=== PATIENT | female | born 1955 | race Hispanic/Latino ===

== ENCOUNTER 2017-07-02 12:01 | Observation (INO) | payer BC ==
--- NOTE | 2017-07-02 13:07 | ED PDOC ---
Arrival/HPI <Kristian Campbell - Last Filed: 07/02/17 17:16> - General Historian: Patient, Spouse - History of Present Illness Time/Duration: 1 week Symptom Onset: Gradual Symptom Course: Worsening Quality: Aching, Stabbing, Burning Severity Level: 8 Activities at Onset: Rest, Eating Context: Home <KHANG ARNOLD - Last Filed: 07/02/17 17:50> - General Chief Complaint: Abdominal Pain Time Seen by Provider: 07/02/17 12:18 - History of Present Illness Narrative History of Present Illness (Text): 07/02/17 12:57 Mrs. Christopher is a 62 year old female with a past medical history of gastritis in 2015 who presented to the [facility] [place] ED with a chief complaint of LUQ abdominal pain for one weeks duration. Patient reports that this is a constant intermittently sharp pain with periods of dullness/aching. She reports that this pain radiates to her left flank and left scapular region. She states the pain has gotten worse and for the past three days she has also felt lightheaded, dizzy and weak. She went to an urgent care last night and reports that they offered no diagnosis but prescribed her prescription strength famotidine, which she reports taking at home prior to the urgent with minimal to no relief of her symptoms. She reports no trauma or particular meal/food item and reports being at home when the pain started. She endorses several episodes of non-bloody and non-foul smelling diarrhea at the onset of this pain that was not awakening her at night that has progressively improved to one or two soft/loose stools daily. She endorses lightheadedness, general weakness, body "shakes", abdominal pain , bloating, diarrhea, left flank pain, and decreased PO intake. Patient denies fevers, chills, weight loss, headache, changes in her vision, dysphagia, chest pain, palpitations, MICHEL, edema, shortness of breath, cough, hemoptysis, wheezing , N/V, hematemesis, hematochezia, melena, constipation, burning or pain with urination, vaginal bleeding, rashes or any numbness/tingling/weakness of any extremity. PMH: Gastritis and Tobacco Abuse PSH: 30 years ago Family History: Father with NV at age 68 and HTN; Brother with unknown brain cancer Social: Current smoker with 40 pack year smoking history; Drinks 2 glasses of red wine with dinner daily: No reported illicit drug use Allergies: Levofloxacin Home Medications: None 07/02/17 14:01 (KHANG ARNOLD) Past Medical History - Provider Review Nursing Documentation Reviewed: Yes - Travel History Have you recently traveled outside [place] w/in the past 3 mons?: No - Past History Past History: Non-Contributing - Tetanus Immunization Tetanus Immunization: Unknown - Reproductive Menopause: Yes - Past Medical History Past Medical History: No Previous - Cardiac Hx Cardiac Disorders: No - Pulmonary Hx Respiratory Disorders: No - Neurological Hx Neurological Disorder: No - HEENT Hx HEENT Disorder: No - Renal Hx Renal Disorder: No - Endocrine/Metabolic Hx Endocrine Disorders: No - Hematological/Oncological Hx Blood Disorders: No - Integumentary Hx Dermatological Disorder: No - Musculoskeletal/Rheumatological Hx Musculoskeletal Disorders: No - Gastrointestinal Hx Gastritis: Yes - Genitourinary/Gynecological Hx Genitourinary Disorders: No - Psychiatric Hx Psychophysiologic Disorder: No Hx Substance Use: No - Surgical History Hx Section: Yes - Anesthesia Hx Anesthesia: No - Suicidal Assessment Feels Threatened In Home Enviroment: No <KHANG ARNOLD - Last Filed: 07/02/17 17:50> Family/Social History - Physician Review Nursing Documentation Reviewed: Yes Family/Social History: Hypertension (Father), CAD/NV (Father-NV at 68), Neoplasm /Cancer (Brother with unknown brain cancer). denies: CVA/TIA, Diabetes, Blood Clots Smoking Status: Heavy Smoker > 10 Cigarettes Daily Hx Alcohol Use: Yes (1 glass of wine nightly) Hx Substance Use: No Hx Substance Use Treatment: No <KHANG ARNOLD - Last Filed: 07/02/17 17:50> Allergies/Home Meds <Kristian Campbell - Last Filed: 07/02/17 17:16> <KHANG ARNOLD - Last Filed: 07/02/17 17:50> Allergies/Adverse Reactions: Allergies levofloxacin [From Levaquin] Allergy (Verified 07/02/17 16:55) SWELLING Home Medications: Home Meds Medication Instructions Recorded Confirmed Famotidine [Pepcid] 40 mg PO DAILY 07/02/17 07/02/17 Review of Systems - Physician Review All systems were reviewed & negative as marked: Yes - Review of Systems Constitutional: Normal. absent: Fatigue, Weight Change, Fevers, Night Sweats Eyes: Normal. absent: Vision Changes ENT: Normal. absent: Sore Throat Respiratory: Normal. absent: SOB, Cough, Wheezing Cardiovascular: Normal. absent: Chest Pain, Palpitations, Edema, MICHEL, Syncope Gastrointestinal: Abdominal Pain, Diarrhea, Appetite Changes. absent: Normal, Constipation, Nausea, Vomiting, Hematochezia, Hematemesis Genitourinary Female: Normal. absent: Dysuria, Hematuria, Vaginal Bleeding Musculoskeletal: Back Pain (Left scapular and left flank pain). absent: Normal , Arthralgias, Neck Pain, Myalgias Skin: Normal. absent: Rash Neurological: Dizziness. absent: Normal, Headache, Focal Weakness, Gait Changes Endocrine: Normal. absent: Diaphoresis, Polyuria, Polydipsia <KHANG ARNOLD - Last Filed: 07/02/17 17:50> Physical Exam Vital Signs Reviewed: Yes Temperature: Afebrile Blood Pressure: Hypertensive (191/100 on admission and 172/102 on manual retake 20 minutes later) Pulse: Regular Respiratory Rate: Normal Appearance: Positive for: Non-Toxic, Uncomfortable Pain Distress: Moderate Mental Status: Positive for: Alert and Oriented X 3 - Systems Exam Head: Present: Atraumatic, Normocephalic Pupils: Present: PERRL Extroacular Muscles: Present: EOMI Conjunctiva: Present: Normal Mouth: Present: Moist Mucous Membranes, Normal Tounge, Normal Teeth Pharnyx: Present: Normal. No: ERYTHEMA, EXUDATE, TONSILS ENLARGED Nose (External): Present: Atraumatic Neck: Present: Normal Range of Motion, Trachea Midline. No: MIDLINE TENDERNESS , JVD, Lymphadenopathy Respiratory/Chest: Present: Clear to Auscultation, Good Air Exchange. No: Respiratory Distress, Accessory Muscle Use, Wheezes, Decreased Breath Sounds, Rales, Rhonchi, Tachypneic, Tender to Palpation Cardiovascular: Present: Regular Rate and Rhythm, Normal S1, S2, Peripheal Pulses Present. No: Murmurs, Irregular Rhythm, Tachycardic, Bradycardic Abdomen: Present: Tenderness (Tenderness to light and deep palpation to LUQ), Other (Negative murphys sign). No: Distention, Normal Bowel Sounds ( Hyperactive bowel sounds), McBurney's Point Tender Back: Present: Normal Inspection. No: CVA Tenderness, Midline Tenderness, Paraspinal Tenderness Upper Extremity: Present: Normal Inspection, NORMAL PULSES, Capillary Refill < 2s. No: Cyanosis, Edema Lower Extremity: Present: Normal Inspection, NORMAL PULSES, Capillary Refill < 2 s. No: Edema, CALF TENDERNESS Neurological: Present: GCS=15, Speech Normal Skin: Present: Warm, Dry, Normal Color. No: Rashes Lymphatic: No: Cervical Adenopathy Psychiatric: Present: Alert, Oriented x 3, Normal Insight, Normal Concentration <KHANG ARNOLD - Last Filed: 07/02/17 17:50> Vital Signs Temp Pulse Resp BP Pulse Ox 07/02/17 17:21 97.7 F 77 18 140/79 07/02/17 14:57 77 18 140/79 95 07/02/17 13:32 73 188/96 H 07/02/17 13:21 78 18 172/105 H 96 07/02/17 12:06 97.7 F 85 21 192/101 H 96 Medical Decision Making <Kristian Campbell - Last Filed: 07/02/17 17:16> - Lab Interpretations I have reviewed the lab results: Yes - EKG Interpretation Interpreted by ED Physician: Yes Type: 12 lead EKG <KHANG ARNOLD - Last Filed: 07/02/17 17:50> ED Course and Treatment: 07/02/17 16:00 Precious Christopher is a 62 year old female who presents to the emergency department with 1 week duration LUQ abdominal pain. The patient was seen and examined with resident. Came up with treatment and disposition plan with resident. (Kristian Campbell) 07/02/17 14:07 Impression: 62 year old female with a past medical history of gastritis in 2014 who presented to the [facility] [place] [facility] ED with a chief complaint of LUQ abdominal pain for one weeks duration. Patient with hypertension to 190's/100 on admission with continued hypertension at 172/102 on manual retake. Plan: -CBC, CMP, Lipase, Amylase, Cardiac Iso's, UA -EKG -CT Abdomen/Pelvis with IV Contrast and Chest X-Ray (portable) -ED NPO (except medications) and Normal Saline at 100mls/hr -Famotidine 40mg PO, Bentyl 20mg PO and Morphine 4mg IVP once for pain control -Clonidine 1mg PO for hypertension Prior Visits: All reports and results from previous admissions reviewed 03/15/15: Patient was seen for left sided abdominal pain and diagnosed with gastritis and sent home with a prescription for Pepcid (KHANG ARNOLD) - EKG Interpretation EKG Interpretation (Text): 07/02/17 14:06 70 BPM, NSR, No ST-T wave changes, No T wave abnormalities (KHANG ARNOLD) - Medication Orders Current Medication Orders: Sodium Chloride (Sodium Chloride 0.9%) 1,000 mls @ 100 mls/hr IV .Q10H FABY Last Admin: 07/02/17 13:31 Dose: 100 mls/hr eMAR Start Stop Document 07/02/17 13:31 OCS (Rec: 07/02/17 13:32 OCS [id number]) Intravenous Solution Start Date 07/02/17 Start Time 13:32 Discontinued Medications Clonidine HCl (Catapres) 0.1 mg PO STAT STA Stop: 07/02/17 13:18 Last Admin: 07/02/17 13:32 Dose: 0.1 mg MAR Pulse and Blood Pressure Document 07/02/17 13:32 OCS (Rec: 07/02/17 13:39 OCS [id number]) Pulse Pulse Rate (60-90) 73 Blood Pressure Blood Pressure (100/60-150/90) 188/96 Dicyclomine HCl (Bentyl) 20 mg PO ONCE ONE Stop: 07/02/17 13:16 Last Admin: 07/02/17 13:31 Dose: 20 mg Famotidine (Pepcid) 40 mg PO STAT STA Stop: 07/02/17 13:16 Last Admin: 07/02/17 13:31 Dose: 40 mg Morphine Sulfate (Morphine) 4 mg IVP STAT STA Stop: 07/02/17 14:03 Last Admin: 07/02/17 15:15 Dose: 4 mg MAR Pain Assessment Document 07/02/17 15:15 OCS (Rec: 07/02/17 15:15 OCS [id number]) Pain Reassessment Is this a pain reassessment? Yes Sleep Is patient sleeping during reassessment? No Presence of Pain Presence of Pain Yes Location Left, Right or Bilateral Left Upper or Lower Lower Pain Location Body Site Abdomen Description Description Constant IVP Administration Document 07/02/17 15:15 OCS (Rec: 07/02/17 15:15 OCS [id number]) Charges for Administration # of IVP Administrations 1 Re-Assess: JOSE Pain Assessment Document 07/02/17 16:15 OCS (Rec: 07/02/17 16:38 OCS [id number]) Pain Reassessment Is this a pain reassessment? Yes Sleep Is patient sleeping during reassessment? No Presence of Pain Presence of Pain Yes Pain Scale Used Pain Scale Used Numeric Location Left, Right or Bilateral Left Upper or Lower Lower Pain Location Body Site Abdomen Description Description Constant Intensity of Pain at present 4 Nitroglycerin (Nitrostat Sl Tab) 0.4 mg SL STAT STA Stop: 07/02/17 16:23 Last Admin: 07/02/17 17:17 Dose: 0.4 mg Pantoprazole Sodium (Protonix Inj) 40 mg IVP ONCE STA Stop: 07/02/17 16:23 Last Admin: 07/02/17 17:18 Dose: 40 mg IVP Administration Document 07/02/17 17:18 OCS (Rec: 07/02/17 17:18 [id number]) Charges for Administration # of IVP Administrations 1 Pneumococcal Polyvalent Vaccine (Pneumovax 23 Vaccine) 0.5 ml IM .ONCE ONE Stop: 07/02/17 17:36 ED OBSERVATION Date of observation admission: 07/02/17 Time of observation admission: 12:40 <Kristian Campbell - Last Filed: 07/02/17 17:16> <KHANG ARNOLD - Last Filed: 07/02/17 17:50> - Observation admission statement Patient is being placed in observation because:: Has abdominal pain and needs workup and treatment (Kristian Campbell) - Goals of Observation Goals of observation are:: TO discern diagnosis, improve symptoms and determine disposition. (Kristian Campbell) - Progress Note Progress Note: 07/02/17 14:00 Patient is still in pain; will give morphine. awaiting CT a/p. 07/02/17 14:[address] at this time. 07/02/17 16:22 The patient is continuing to complain of abdominal pain despite meds but now also chest pain and dizziness. Initial BP was elevated. Given unremarkable abd CT and continuing symptoms with cp, will need further observation on tele. 07/02/17 17:16 Case was discussed with Dr. Arango for placement on her service. (Kristian Campbell) - PA / INSURANCE BILLING SPECIALIST / Resident Statement / has reviewed & agrees with the documentation as recorded. / has examined the patient and agrees with the treatment plan. <Kristian Campbell - Last Filed: 07/02/17 17:16> Disposition/Present on Arrival - Present on Arrival Any Indicators Present on Arrival: No - Disposition Have Diagnosis and Disposition been Completed?: Yes Disposition Time: 12:40 Patient Plan: Observation, Telemetry <Kristian Campbell - Last Filed: 07/02/17 17:16> - Present on Arrival History of DVT/PE: No History of Uncontrolled Diabetes: No Urinary Catheter: No History of Decub. Ulcer: No History Surgical Site Infection Following: None <KHANG ARNOLD - Last Filed: 07/02/17 17:50> - Disposition Diagnosis: Chest pain, Abdominal pain Disposition: HOSPITALIZED Patient Problems: Current Active Problems Problem Status Onset Abdominal pain Acute Chest pain Acute Condition: FAIR
[2017-07-02] MEDS: Sodium Chloride 0.9% 1,000 ML IV SCH ×2 (13:31→23:17)
[2017-07-02 13:48] LABS: BASO # 0.03 K/mm3 (0.0-2.0); BASO % 0.3 % (0.0-3.0); EOS # 0.1 (0.0-0.7); EOS % 0.6 % (1.5-5.0); GRAN # 6.8 (1.4-6.5); GRAN % 75.5 % (50.0-68.0); HEMATOCRIT 51.3 % (36.0-48.0); LYMPH # 1.6 (1.2-3.4); LYMPH % 18.1 % (22.0-35.0); MEAN CELL VOLUME 96.6 fl (80.0-105.0); MEAN CORPUSCULAR HEMOGLOBIN 34.7 pg (25.0-35.0); MEAN CORPUSCULAR HGB CONC 35.9 g/dl (31.0-37.0); MEAN PLATELET VOLUME 10.2 fl (7.0-11.0); MONO # 0.5 (0.1-0.6); MONO % 5.5 % (1.0-6.0); RED CELL DISTRIBUTION WIDTH 13.9 % (11.5-14.5)
[2017-07-02 13:58] LABS: ALB/GLOB RATIO 1.5 (1.1-1.8); ALKALINE PHOSPHATASE 92 U/L (38-126); ALT/SGPT 31 U/L (7-56); AMYLASE 37 U/L (35-125); AST/SGOT 31 U/L (14-36); BILIRUBIN,TOTAL 0.8 mg/dL (0.2-1.3); BLOOD UREA NITROGEN 7 mg/dL (7-21); CALCIUM 9.8 mg/dL (8.4-10.5); CARBON DIOXIDE 27 mmol/L (21-33); CHLORIDE 105 mmol/L (98-107); GFR AFRICAN-AMERICAN > 60; GLUCOSE,RANDOM 92 mg/dL (70-110); LIPASE 77 U/L (23-300); POTASSIUM 4.4 mmol/L (3.6-5.0); SODIUM 142 mmol/L (132-148); TOTAL PROTEIN 7.3 g/dL (5.8-8.3)
[2017-07-02] MEDS ORDERED: Morphine 4 mg/ml ISec IVP STA (14:02)
[2017-07-02 14:03] LABS: PH,URINE 6.5 (4.7-8.0); URINE BILIRUBIN NEGATIVE (NEGATIVE); URINE BLOOD TRACE-INTACT (NEGATIVE); URINE GLUCOSE (UA) NEGATIVE (NEGATIVE); URINE KETONE NEGATIVE (NEGATIVE); URINE LEUKOCYTE ESTERASE NEGATIVE Leu/uL (NEGATIVE); URINE PROTEIN NEGATIVE mg/dL (<30 mg/dL); URINE UROBILINOGEN 0.2 E.U./dL (<1 E.U./dL)
[2017-07-02 14:04] LABS: URINE APPEARANCE CLEAR (CLEAR); URINE COLOR STRAW (YELLOW)
[2017-07-02 14:11] LABS: URINE BACTERIA TRACE (NEG); URINE EPITHELIAL CELLS 0 - 2 /hpf (0-5); URINE RBC NEGATIVE /hpf (0-2); URINE WBC NEGATIVE /hpf (0-6)
[2017-07-02 14:13] LABS: TROPONIN I < 0.01 ng/mL
[2017-07-02] MEDS ORDERED: Iohexol 350 MG/100 ML VIAL ONE (14:18)
--- NOTE | 2017-07-02 14:45 | CT ---
PROCEDURE: CT Abdomen and Pelvis with contrast HISTORY: Abdominal pain COMPARISON: 03/15/2015 TECHNIQUE: Contrast dose: 100 mL Omnipaque 350 Radiation dose: Total exam DLP = 394.38 mGy-cm. This CT exam was performed using one or more of the following dose reduction techniques: Automated exposure control, adjustment of the mA and/or kV according to patient size, and/or use of iterative reconstruction technique. FINDINGS: LOWER THORAX: Unremarkable. LIVER: Two very small nonspecific low-attenuation lesions in the liver, 1 right lobe 1 left lobe. Largest 8 mm. Unchanged. No new hepatic mass. No biliary dilatation. Smooth contour. GALLBLADDER AND BILE DUCTS: Unremarkable. PANCREAS: Unremarkable. No gross lesion or ductal dilatation. SPLEEN: Unremarkable. ADRENALS: Unremarkable. No mass. KIDNEYS AND URETERS: Unremarkable. No hydronephrosis. No solid mass. VASCULATURE: Unremarkable. No aortic aneurysm. BOWEL: Unremarkable. No obstruction. No gross mural thickening. APPENDIX: Normal appendix. PERITONEUM: Unremarkable. No free fluid. No free air. LYMPH NODES: Unremarkable. No enlarged lymph nodes. BLADDER: Unremarkable. REPRODUCTIVE: Several nodular uterine calcifications, likely related to calcified degenerated fibroids. No mass identified. BONES: No acute fracture. OTHER FINDINGS: None. IMPRESSION: No acute abnormality. Minor findings as above.
--- NOTE | 2017-07-02 16:06 | RAD ---
HISTORY: abdominal pain with radiation to scapula COMPARISON: 03/05/2015 FINDINGS: LUNGS: No active pulmonary disease. PLEURA: No significant pleural effusion identified, no pneumothorax apparent. CARDIOVASCULAR: Normal. OSSEOUS STRUCTURES: No significant abnormalities. VISUALIZED UPPER ABDOMEN: Normal. OTHER FINDINGS: None. IMPRESSION: No active disease.
[2017-07-02] MEDS ORDERED: Pneumococcal 23-Valent Vaccine IM ONE (17:35)
[2017-07-02 17:36] VITALS: BMI 21.8
[2017-07-02] MEDS ORDERED: Morphine 4 mg/ml ISec IVP PRN (17:50)
[2017-07-02 22:29] LABS: TROPONIN I < 0.01 ng/mL
[2017-07-03 00:05] VITALS: RESP 20
[2017-07-03 05:48] VITALS: O2SAT 97
[2017-07-03 06:46] LABS: BLOOD UREA NITROGEN 7 mg/dL (7-21); CALCIUM 8.8 mg/dL (8.4-10.5); CARBON DIOXIDE 26 mmol/L (21-33); CHLORIDE 108 mmol/L (98-107); CHOLESTEROL 177 mg/dL (130-200); GFR AFRICAN-AMERICAN > 60; GLUCOSE,RANDOM 80 mg/dL (70-110); POTASSIUM 3.9 mmol/L (3.6-5.0); SODIUM 140 mmol/L (132-148)
[2017-07-03 06:56] LABS: FREE T4 0.95 ng/dL (0.78-2.19)
[2017-07-03 07:04] LABS: TROPONIN I < 0.01 ng/mL
[2017-07-03 07:10] LABS: THYROID STIMULATING HORMONE 2.76 mIU/mL (0.46-4.68)
[2017-07-03 08:07] LABS: BASO # 0.04 K/mm3 (0.0-2.0); BASO % 0.6 % (0.0-3.0); EOS # 0.1 (0.0-0.7); EOS % 1.5 % (1.5-5.0); GRAN # 3.53 (1.4-6.5); GRAN % 53.9 % (50.0-68.0); HEMATOCRIT 44.1 % (36.0-48.0); LYMPH # 2.3 (1.2-3.4); LYMPH % 35.6 % (22.0-35.0); MEAN CELL VOLUME 97.8 fl (80.0-105.0); MEAN CORPUSCULAR HEMOGLOBIN 33.5 pg (25.0-35.0); MEAN CORPUSCULAR HGB CONC 34.2 g/dl (31.0-37.0); MEAN PLATELET VOLUME 10.7 fl (7.0-11.0); MONO # 0.6 (0.1-0.6); MONO % 8.4 % (1.0-6.0); RED CELL DISTRIBUTION WIDTH 14.1 % (11.5-14.5); WHITE BLOOD COUNT 6.6 10^3/ul (4.5-11.0)
--- NOTE | 2017-07-03 08:36 | CARD ---
APPROVED REPORT EKG Measurement Heart [id number] NM [id number] <Conclusion> Normal sinus rhythm Normal ECG No change
[2017-07-03] MEDS: Sodium Chloride 0.9% 1,000 ML IV SCH (10:53)
[2017-07-03 12:27] VITALS: BP 147/73; PULSE 85; TEMP 98.1
--- NOTE | 2017-07-03 15:24 | CON ---
DATE: 07/03/2017 CARDIOLOGY CONSULTATION HISTORY OF PRESENT ILLNESS: The patient is a 62-year-old woman who presents with left lower quadrant pain with radiation to the epigastric area. These symptoms are chronic in nature. She was found to be mildly hypertensive in the emergency room, the patient was admitted. The patient's past medical history is free of significant disease. No previous cardiac history noted. The patient may suffer from COPD and does suffer from a smoker's cough. Negative diabetes mellitus. Negative history of hypertension. SOCIAL HISTORY: One pack a day smoker. REVIEW OF SYSTEMS: A 14-point review of systems reviewed. No angina. No shortness of breath. Negative edema in lower extremities. No cardiac symptomatology. PHYSICAL EXAMINATION: VITAL SIGNS: Blood pressure 153/89, heart rates in the 60s, normal sinus rhythm. NECK: Negative JVD. LUNGS: Without rales. HEART: S1, S2. EXTREMITIES: Without edema. EKG is within normal limits. Troponin negative x3. Hemoglobin is stable. IMPRESSION: 1. Abdominal pain. 2. Hypertension. 3. Probable chronic obstructive pulmonary disease. 4. No evidence for any cardiac issues. No evidence for acute coronary syndrome. Given these findings, we will order antihypertensive medications for the patient. We will start her on Diovan. I have discussed with the patient about the need to stop smoking. We will discontinue telemetry today. In the morning, we will transfer the care back to Dr. Messina. Ronaldo Braxton MD
--- NOTE | 2017-07-06 00:52 | DS ---
DISCHARGE DIAGNOSES: 1. Polycythemia. 2. Chest pain, resolved. 3. Gastritis. 4. Abdominal pain, resolved. HOSPITAL COURSE: The patient was admitted with abdominal pain, chest pain, both nonspecific. CAT scan of the abdomen and pelvis showed uterine fibroid. No acute pathology identified. Serial troponins were negative. She was evaluated by cardiology, Dr. Braxton. Blood pressure was elevated. She had polycythemia on blood work. Hemoglobin elevated to 18. Hemoglobin declined to 15 gram/dL with IV hydration for 24 hours. Chest pain and abdominal pain resolved. She is being discharged in stable condition. She will need workup for myeloproliferative disorder, which can be done in office. PHYSICAL EXAMINATION: GENERAL: On discharge, comfortable in bed in no acute distress. VITAL SIGNS: Temperature 98.7, heart rate 80 per minute, blood pressure 140/80, respiratory rate 20 per minute, oxygen saturation 98% on room air. HEENT: Normal. Oral mucosa moist. NECK: Supple. CHEST: Air entry present equal bilateral. No added sound. CARDIOVASCULAR: S1 and S2 normal. No murmur. No gallop. ABDOMEN: Soft and nontender. No hepatosplenomegaly. EXTREMITIES: No edema. CENTRAL NERVOUS SYSTEM: Alert and oriented x3. No focal sensory or motor deficit. SPINE: Nontender. SKIN: No petechiae. No rash. CONDITION ON DISCHARGE: Stable. DISPOSITION: Discharge home. HOME MEDICATIONS: Cozaar 100 mg daily, Pepcid 20 mg daily. Followup with Dr. Werner for evaluation of myeloproliferative disorder. Followup with Dr. Braxton in one week. CONDITION ON DISCHARGE: Stable. DISPOSITION: Discharge home. All prescriptions given. Time spent in preparing discharge and coordinating care 60 minutes. Rachelle Werner MD
--- NOTE | 2017-07-06 02:01 | HP ---
HISTORY OF PRESENT ILLNESS: Ms. Christopher is a 62-year-old female presented to the ED with abdominal pain, chest pain. She has history of gastritis, on Pepcid. Denies any weakness, no shortness of breath. Hemoglobin was elevated to 18 g/dL in the ED. Review of records showed she had elevated hemoglobin and hematocrit a year ago also during hospitalization. CAT scan of abdomen and pelvis was unremarkable for any acute pathology. No marked lesion identified. She had some small calcified fibroid in the uterus. Chest pain on left side, no radiation. Gastritis, she takes Pepcid for past few years. PAST MEDICAL HISTORY: Gastritis. PAST SURGICAL HISTORY: 30 years ago. FAMILY HISTORY: Father had MO. Mother had hypertension. Brother had brain cancer. PERSONAL HISTORY: Heavy smoker. Smokes one to two packs per day. No history of alcohol abuse. ALLERGIES: LEVOFLOXACIN CAUSES ANGIOEDEMA. HOME MEDICATIONS: None. REVIEW OF SYSTEMS: As per HPI. Rest of 12-point review of systems reviewed and negative. PHYSICAL EXAMINATION: GENERAL: Comfortable in bed in no acute distress. VITAL SIGNS: Temperature 98.7, heart rate is 85 per minute, respiratory rate 20 per minute, blood pressure 140/79, pulse ox 95% on room air. HEENT: Normal. CHEST: Air entry present equal and bilaterally. No added sounds. CARDIOVASCULAR: S1 and S2 normal. No murmur. No gallop. ABDOMEN: Soft and nontender. No hepatosplenomegaly. EXTREMITIES: No edema. Erythema of both hands present. SOCIOLOGY FACULTY MEMBER: Alert and oriented x3. No focal sensory or motor deficit. SKIN: No petechia, no rash. Erythema on both hands. SPINE: Nontender. EKG: Normal sinus rhythm. CT abdomen, as per HPI. LABORATORY DATA: White count 9000, hemoglobin 18.4, hematocrit 51.3, platelet count 203. Neutrophil 75%, lymphocyte 18%, granulocyte 6.8%. Sodium 142, potassium 4.4, AST 31, ALT 31, creatinine 0.7. Amylase 37, lipase 77. TSH 2.7. Troponin less than 0.01. ASSESSMENT AND PLAN: 1. Polycythemia. 2. Abdominal pain. 3. Chest pain. 4. History of gastritis. PLAN: She will be admitted to telemonitoring. Serial cardiac enzymes will be monitored. Two sets of troponin ordered. Cardiology consultation with Dr. Cross requested. IV Pepcid 40 mg to be given stat. She was found to have elevated blood pressure of 153/89. Cozaar 100 mg was started by Dr. Braxton. Nitroglycerin paste stat. She will also given Catapres 0.1 mg p.o. IV fluid normal saline 800 mL an hour. She will be NPO. GI consultation with Dr. Heath requested. For pain, morphine 4 mg IV q. 6 hours p.r.n. Polycythemia, elevated hemoglobin 18; review of record showed she had elevated hemoglobin last year too around 17 g/dL. She needs workup for polycythemia. Abdominal pain, chest pain might be related to polycythemia and hyperviscosity. Rachelle Werner MD
== END 2017-07-03 15:43 | disposition home or self-care (01) ==
LOC: ED 12:01 → EROBSV 12:40 → ERH 16:21 → 2RSO 17:22
PROVIDERS: ADMIT Internal Medicine; ATTEND Internal Medicine
DX: R10.32 Left lower quadrant pain (principal); R10.12 Left upper quadrant pain; R07.9 Chest pain, unspecified; I10 Essential (primary) hypertension; K29.70 Gastritis, unspecified, without bleeding; F17.210 Nicotine dependence, cigarettes, uncomplicated; J41.0 Simple chronic bronchitis; Z82.49 Family history of ischemic heart disease and other diseases of the circulatory system
CPT/HCPCS: 36415; 71010; 74177; 80048; 80053; 80061; 81001; 82150; 82550; 83615; 83690; 84439; 84443; 84484; 85025; 93005; 96374; 96375; 99285; C9113; G0378; J2270; J7040; Q9967

== ENCOUNTER 2018-04-05 16:33 | Observation (INO) | payer BC ==
--- NOTE | 2018-04-05 17:21 | ED PDOC ---
Arrival/HPI - General Chief Complaint: Abdominal Pain Time Seen by Provider: 04/05/18 16:51 Historian: Patient, Spouse - History of Present Illness Narrative History of Present Illness (Text): 04/05/18 17:21 Patient is a 62 year old female whose past medical history includes hypertension , who presents to the Emergency department with her complaining of persistent epigastric pain that started 3 days ago. Patient reports that she is experiencing associated nausea and dizziness and has had 2 episodes of loss of consciousness today. Her explains that both episodes of syncope lasted for 10-20 seconds with the second episode occurring upon standing. Patient saw her dining room helper yesterday, who instructed her to see a nut threader, and she subsequently scheduled an appointment to see . She also mentions that she was hospitalized at [facility] [place] and was diagnosed with gastritis, but wasn't confirmed with endoscopy. Patient denies fevers, chills, cough, shortness of breath, chest pain, dyspnea on exertion, vomiting, diarrhea, back pain, neck pain, headache, or any other complaint. PMD: Customer Operations Intern: Time/Duration: < week (3 days ago) Symptom Onset: Sudden Symptom Course: Unchanged Context: Home Past Medical History - Provider Review Nursing Documentation Reviewed: Yes - Past History Past History: Non-Contributing - Infectious Disease Hx of Infectious Diseases: None - Tetanus Immunization Tetanus Immunization: Unknown - Reproductive Menopause: Yes - Past Medical History Past Medical History: No Previous - Cardiac Hx Cardiac Disorders: Yes Hx Hypertension: Yes - Pulmonary Hx Respiratory Disorders: No - Neurological Hx Neurological Disorder: No - HEENT Hx HEENT Disorder: No - Renal Hx Renal Disorder: No - Endocrine/Metabolic Hx Endocrine Disorders: No - Hematological/Oncological Hx Blood Disorders: No - Integumentary Hx Dermatological Disorder: No - Musculoskeletal/Rheumatological Hx Musculoskeletal Disorders: No - Gastrointestinal Hx Gastritis: Yes - Genitourinary/Gynecological Hx Genitourinary Disorders: No - Psychiatric Hx Psychophysiologic Disorder: No Hx Substance Use: No - Surgical History Hx Section: Yes - Anesthesia Hx Anesthesia: Yes Hx Anesthesia Reactions: No - Suicidal Assessment Feels Threatened In Home Enviroment: No Family/Social History - Physician Review Nursing Documentation Reviewed: Yes Family/Social History: No Known Family HX Smoking Status: Heavy Smoker > 10 Cigarettes Daily Hx Alcohol Use: Yes (1 glass of wine nightly) Hx Substance Use: No Hx Substance Use Treatment: No Allergies/Home Meds Allergies/Adverse Reactions: Allergies levofloxacin [From Levaquin] Allergy (Verified 04/05/18 16:47) SWELLING Home Medications: Home Meds Medication Instructions Recorded Confirmed Famotidine [Pepcid] 40 mg PO DAILY 07/02/17 04/05/18 Review of Systems - Physician Review All systems were reviewed & negative as marked: Yes - Review of Systems Constitutional: absent: Fevers Cardiovascular: absent: Chest Pain Physical Exam - Physical Exam Narrative Physical Exam (Text): 04/05/18 17:21 Constitutional: No acute distress. Head: Normocephalic. Atraumatic. Eyes: PERRL. ENT: Moist mucous membranes. Neck: Supple. Cardiovascular: Regular rate. Chest: No tenderness. Respiratory: Clear to auscultation bilaterally. GI: Soft. Nondistended. Epigastric tenderness. No guarding or rebound. Back: No CVA tenderness. Musculoskeletal: No tenderness or swelling of extremities. Skin: No rash. Neurologic: Alert, no focal deficit. Vital Signs Reviewed: Yes Vital Signs Temp Pulse Resp BP Pulse Ox 04/05/18 20:06 84 16 144/94 H 94 L 04/05/18 16:42 98.4 F 92 H 18 157/88 H 99 Temperature: Afebrile Blood Pressure: Hypertensive Pulse: Regular Respiratory Rate: Normal Appearance: Positive for: Well-Appearing Mental Status: Positive for: Alert and Oriented X 3 Medical Decision Making ED Course and Treatment: 04/05/18 17:21 Impression: Patient is a 62 year old female who presents to the Emergency department complaining of 3 days of persistent abdominal pain with associated nausea. Differential Diagnosis included but are not limited to: Gastritis vs. Appendicitis vs. Colitis vs. Anemia vs. Hypovolemia vs. Arrhythmia Plan: -- Labs and cardiac enzymes -- Blood work -- Chest X-ray -- Abdomen and Pelvis CT with IV contrast -- urine culture and urinaly -- Reassess and disposition Prior Visits: Notes and results from previous visits were reviewed. Patient was last seen in the emergency department on 07/02/17 and was hospitalized for chest and abdominal pain. Progress Notes: 04/05/18 18:13 EKG shows NSR at [address]/T wave changes. Interpreted by me. 04/05/18 20:[address] with IV contrast: COMPARISON: CT - ABD PELVIS IV CONTRAST ONLY 2017-07-02 14:25 IMPRESSION: No acute abdominal or pelvic abnormalities. Stable exam. Normal appendix. Dictated and Authenticated by: Maria G Eastman MD 04/05/18 20:06 Chest X-ray shows no acute disease. Interpreted by me. 04/05/18 20:17 Discussed case with , who is aware of the patient and states she will consult on the case. 04/05/18 20:21 Discussed case with , who is covering for , and who is aware and agrees to admit patient under her service. Recommends consultation with (nut threader). 04/05/18 20:29 Discussed case with , who is aware of the patient and agrees to consult on the case. - Lab Interpretations Lab Results: 04/05/18 17:50 04/05/18 17:50 Lab Results 04/05/18 19:33: Blood Type Confirm B POSITIVE 04/05/18 17:52: Blood Type B POSITIVE, Antibody Screen Negative, BBK History Checked No verified bt 04/05/18 17:50: Sodium 138, Potassium 4.2, Chloride 102, Carbon Dioxide 24, Anion Gap 16, BUN 6 L, Creatinine 0.5 L, Est GFR ( Amer) > 60, Est GFR ( Non-Af Amer) > 60, Random Glucose 98, Calcium 9.5, Total Bilirubin 0.8, AST 29, ALT 26, Alkaline Phosphatase 77, Total Creatine Kinase 48, Troponin I < 0.01, Total Protein 7.0, Albumin 4.3, Globulin 2.7, Albumin/Globulin Ratio 1.6, Lipase 79 04/05/18 17:50: PT 10.4, INR 0.91 L, APTT 29.4 04/05/18 17:50: WBC 8.6 D, RBC 4.37, Hgb 15.2, Hct 40.7, MCV 93.1 D, MCH 34.8 , MCHC 37.3 H, RDW 14.4, Plt Count 206, MPV 9.7, Gran % 69.4 H, Lymph % (Auto) 23.8, Gonzales % (Auto) 5.8, Eos % (Auto) 0.5 L, Baso % (Auto) 0.5, Gran # 5.96, Lymph # (Auto) 2.0, Gonzales # (Auto) 0.5, Eos # (Auto) 0.0, Baso # (Auto) 0.04 04/05/18 17:30: Urine Color Yellow, Urine Appearance Clear, Urine pH 6.5, Ur Specific Frederic <= 1.005, Urine Protein Negative, Urine Glucose (UA) Negative, Urine Ketones Negative, Urine Blood Negative, Urine Nitrate Negative, Urine Bilirubin Negative, Urine Urobilinogen 0.2, Ur Leukocyte Esterase Negative I have reviewed the lab results: Yes - RAD Interpretation Radiology Orders: 04/05/18 17:28 ABD & PELVIS IV CONTRAST ONLY [CT] Stat CHEST PORTABLE [RAD] Stat Child Care Coordinator: ED Physician, Radiologist - EKG Interpretation Interpreted by ED Physician: Yes Type: 12 lead EKG - Medication Orders Current Medication Orders: Discontinued Medications Al Hydrox/Mg Hydrox/Simethicone (Maalox Plus 30 Ml) 30 ml PO STAT STA Stop: 04/05/18 20:21 Last Admin: 04/05/18 20:31 Dose: 30 ml Famotidine (Pepcid) 20 mg IVP STAT STA Stop: 04/05/18 20:21 Last Admin: 04/05/18 20:31 Dose: 20 mg IVP Administration Document 04/05/18 20:31 CNR (Rec: 04/05/18 20:31 CNR [id number] Charges for Administration # of IVP Administrations 1 Ondansetron HCl (Zofran Inj) 8 mg IVP STAT STA Stop: 04/05/18 20:21 Last Admin: 04/05/18 20:31 Dose: 8 mg IVP Administration Document 04/05/18 20:31 CNR (Rec: 04/05/18 20:31 CNR [id number] Charges for Administration # of IVP Administrations 1 - Scribe Statement The provider has reviewed the documentation as recorded by the Scriblorraine Rojo Provider Scribe Attestation: All medical record entries made by the Scribe were at my direction and personally dictated by me. I have reviewed the chart and agree that the record accurately reflects my personal performance of the history, physical exam, medical decision making, and the department course for this patient. I have also personally directed, reviewed, and agree with the discharge instructions and disposition. Disposition/Present on Arrival - Present on Arrival Any Indicators Present on Arrival: No History of DVT/PE: No History of Uncontrolled Diabetes: No Urinary Catheter: No History of Decub. Ulcer: No History Surgical Site Infection Following: None - Disposition Have Diagnosis and Disposition been Completed?: Yes Diagnosis: Syncope, Abdominal pain Disposition: HOSPITALIZED Disposition Time: 20:04 Patient Plan: Observation, Telemetry Condition: FAIR
[2018-04-05 17:41] LABS: PH,URINE 6.5 (4.7-8.0); URINE BILIRUBIN NEGATIVE (NEGATIVE); URINE BLOOD NEGATIVE (NEGATIVE); URINE GLUCOSE (UA) NEGATIVE (NEGATIVE); URINE LEUKOCYTE ESTERASE NEGATIVE Leu/uL (NEGATIVE); URINE PROTEIN NEGATIVE mg/dL (<30 mg/dL); URINE UROBILINOGEN 0.2 E.U./dL (<1 E.U./dL)
[2018-04-05 17:44] LABS: URINE APPEARANCE CLEAR (CLEAR); URINE COLOR YELLOW (YELLOW)
[2018-04-05 17:56] LABS: BASO # 0.04 K/mm3 (0.0-2.0); BASO % 0.5 % (0.0-3.0); EOS % 0.5 % (1.5-5.0); GRAN # 5.96 (1.4-6.5); GRAN % 69.4 % (50.0-68.0); HEMOGLOBIN 15.2 g/dL (12.0-16.0); LYMPH % 23.8 % (22.0-35.0); MEAN CELL VOLUME 93.1 fl (80.0-105.0); MEAN CORPUSCULAR HEMOGLOBIN 34.8 pg (25.0-35.0); MEAN CORPUSCULAR HGB CONC 37.3 g/dl (31.0-37.0); MEAN PLATELET VOLUME 9.7 fl (7.0-11.0); MONO # 0.5 (0.1-0.6); MONO % 5.8 % (1.0-6.0); RBC 4.37 10^6/uL (3.5-6.1); RED CELL DISTRIBUTION WIDTH 14.4 % (11.5-14.5); WHITE BLOOD COUNT 8.6 10^3/ul (4.5-11.0)
[2018-04-05 18:05] LABS: INR 0.91 (0.93-1.08); PARTIAL THROMBOPLASTIN TIME 29.4 Seconds (25.1-36.5); PROTHROMBIN TIME 10.4 SECONDS (9.4-12.5)
[2018-04-05 18:13] LABS: ALB/GLOB RATIO 1.6 (1.1-1.8); ALBUMIN 4.3 g/dL (3.0-4.8); ALT/SGPT 26 U/L (7-56); AST/SGOT 29 U/L (14-36); BLOOD UREA NITROGEN 6 mg/dL (7-21); CALCIUM 9.5 mg/dL (8.4-10.5); GFR AFRICAN-AMERICAN > 60; GFR NON-AFRICAN AMERICAN > 60; LIPASE 79 U/L (23-300)
[2018-04-05] MEDS ORDERED: Iohexol 350 MG/100 ML VIAL ONE (18:23)
[2018-04-05 18:29] LABS: TROPONIN I < 0.01 ng/mL
[2018-04-05] MEDS ORDERED: Alum-Mag Hydrox-Simethicone Susp (30 mL) PO STA (20:20)
[2018-04-05] MEDS: Dextrose 5%/0.45% NS 1,000 ML IV SCH (23:06)
[2018-04-06 00:49] VITALS: BMI 20.9
--- NOTE | 2018-04-06 04:04 | HP ---
HISTORY OF PRESENT ILLNESS: The patient is 62 years old, came to Emergency Room because of abdominal pain going on for last 2 days. The patient states has been having intermittent pain for last 3 days it is associated with nausea, weakness and according to , she has 2 brief episodes of syncope. They last few seconds, so she was brought to Emergency Room for further evaluation. The patient was seen by Dr. Werner yesterday. she was advised to see clinical quality rn. The patient has appointment with Dr. Heath, but because of today's pain and episode of syncope, they opted to come to Emergency Room for further evaluation. PAST MEDICAL HISTORY: Significant for hypertension, gastritis, history of polycythemia. PAST SURGICAL HISTORY: Significant for 30 years ago. FAMILY HISTORY: Significant for father having [place]. Mother had hypertension and brother had brain cancer. SOCIAL HISTORY: She is and lives with her , heavy smoker. Smoked almost 1 pack a day. ALLERGIES: SHE IS ALLERGIC TO LEVAQUIN LEADING TO ANGIONEUROTIC EDEMA. MEDICATIONS: At home, she is on famotidine 40 mg daily, amlodipine 5 mg daily. REVIEW OF SYSTEMS: Significant for epigastric discomfort. PHYSICAL EXAMINATION: GENERAL: She is awake, alert, oriented, communicative. VITAL SIGNS: She is afebrile, pulse 92, respirations 18, blood pressure 157/88. LUNGS: Bilateral fair airflow. No rhonchi or crackle. HEART: S1, S2 audible. ABDOMEN: Soft, nontender. No rebound, no guarding, some palpable discomfort in epigastric area. NEUROLOGIC: She is awake, alert, oriented, communicative. LABORATORY EXAM: WBC 8.6, hemoglobin 15, hematocrit 40, platelet 206, PT 10.4, INR 0.91. Chemistry: Sodium 138, potassium 4.2, chloride 102, CO2 24, BUN 6, creatinine 0.5, blood sugar of 98. Urinalysis is unremarkable. CT scan is pending. ASSESSMENT: 1. Abdominal pain, etiology unclear, rule out peptic ulcer disease. 2. Polycythemia. 3. Hypertension. PLAN: I will keep the patient on clear liquid. Start her on IV fluids. Start her on Protonix. GI consult by Dr. Heath and Hematology consult by Dr. Werner has been requested. Jeramy Arango MD [facility] # [id number]
[2018-04-06 06:42] LABS: BASO # 0.03 K/mm3 (0.0-2.0); BASO % 0.5 % (0.0-3.0); EOS # 0.1 (0.0-0.7); EOS % 1.4 % (1.5-5.0); GRAN # 3.52 (1.4-6.5); GRAN % 54.5 % (50.0-68.0); HEMOGLOBIN 13.6 g/dL (12.0-16.0); LYMPH # 2.3 (1.2-3.4); LYMPH % 35.1 % (22.0-35.0); MEAN CELL VOLUME 93.8 fl (80.0-105.0); MEAN CORPUSCULAR HEMOGLOBIN 32.5 pg (25.0-35.0); MEAN CORPUSCULAR HGB CONC 34.6 g/dl (31.0-37.0); MEAN PLATELET VOLUME 10.3 fl (7.0-11.0); MONO # 0.6 (0.1-0.6); MONO % 8.5 % (1.0-6.0); RBC 4.19 10^6/uL (3.5-6.1); RED CELL DISTRIBUTION WIDTH 14.7 % (11.5-14.5); WHITE BLOOD COUNT 6.5 10^3/ul (4.5-11.0)
--- NOTE | 2018-04-06 07:03 | RAD ---
HISTORY: syncope COMPARISON: Portable chest 07/02/2017. FINDINGS: LUNGS: No active pulmonary disease. PLEURA: No significant pleural effusion identified, no pneumothorax apparent. CARDIOVASCULAR: Normal. OSSEOUS STRUCTURES: No significant abnormalities. VISUALIZED UPPER ABDOMEN: Normal. OTHER FINDINGS: None. IMPRESSION: No interval acute cardiopulmonary disease appreciated.
[2018-04-06 07:16] LABS: ALB/GLOB RATIO 1.4 (1.1-1.8); ALBUMIN 3.6 g/dL (3.0-4.8); ALT/SGPT 28 U/L (7-56); AMYLASE 41 U/L (35-125); AST/SGOT 17 U/L (14-36); BLOOD UREA NITROGEN 6 mg/dL (7-21); CALCIUM 9.2 mg/dL (8.4-10.5); GFR AFRICAN-AMERICAN > 60; GFR NON-AFRICAN AMERICAN > 60; LIPASE 71 U/L (23-300)
--- NOTE | 2018-04-06 08:14 | CP.PCM.CON ---
<Minesh Rodriguez - Last Filed: 04/06/18 12:16> History of Present Illness - History of Present Illness History of Present Illness: PGY6 GI Fellow Consult Note Patient is a 62yo female with PMHx significant for HTN who presented to the ED with abdominal pain, nausea, dizziness and syncope/near-syncope. States that she has suffered with abdominal/left flank pain for several years but notes symptoms worsening in the last 72 hours. Symptoms are intermittent, stabbing and modestly relieved with Pepcid. Has occasional nocturnal symptoms. Separately , per patient and ED report, she had two syncopal episodes when standing from sitting with loss of consciousness, lasting 10-20 seconds each. She denies any overt GI blood loss or symptoms presently other than pain. Has had some outpatient work up including U/S of the abdomen but has never had endoscopic evaluation. Denies NSAID use. 12 system ROS performed and negative except where stated. PMHx: See HPI PSHx: FHx: Father - [place] and HTN Social: +tobacco use, daily EtOH use (1 glass wine/day), no illicit drug use Endo: No prior evaluations Past Patient History - Infectious Disease Hx of Infectious Diseases: None - Tetanus Immunizations Tetanus Immunization: Unknown - Past Social History Smoking Status: Heavy Smoker > 10 Cigarettes Daily - CARDIAC Hx Cardiac Disorders: Yes Hx Hypercholesterolemia: Yes Hx Hypertension: Yes - PULMONARY Hx Respiratory Disorders: No - NEUROLOGICAL Hx Neurological Disorder: No - HEENT Hx HEENT Problems: No - RENAL Hx Chronic Kidney Disease: No - ENDOCRINE/METABOLIC Hx Endocrine Disorders: No - HEMATOLOGICAL/ONCOLOGICAL Hx Blood Disorders: No - INTEGUMENTARY Hx Dermatological Problems: No - MUSCULOSKELETAL/RHEUMATOLOGICAL Hx Musculoskeletal Disorders: No Hx Falls: No - GASTROINTESTINAL Hx Gastrointestinal Disorders: Yes (GASTRITIS) - GENITOURINARY/GYNECOLOGICAL Hx Genitourinary Disorders: No - PSYCHIATRIC Hx Psychophysiologic Disorder: No Hx Substance Use: No - SURGICAL HISTORY Hx Surgeries: Yes (C/S X 1) - ANESTHESIA Hx Anesthesia: Yes Hx Anesthesia Reactions: No Meds Allergies/Adverse Reactions: Allergies Allergy/AdvReac Type Severity Reaction Status Date / Time levofloxacin [From Levaquin] Allergy SWELLING Verified 04/05/18 16:47 - Medications Medications: Current Medications Amlodipine Besylate (Norvasc) 5 mg PO DAILY FABY Dextrose/Sodium Chloride (Dextrose 5%/0.45% Ns 1000 Ml) 1,000 mls @ 75 mls/hr IV .[id number] [facility] Last Admin: 04/05/18 23:06 Dose: 75 mls/hr Ondansetron HCl (Zofran Inj) 4 mg IVP Q6H PRN PRN Reason: Nausea/Vomiting Pantoprazole Sodium (Protonix Inj) 40 mg IVP DAILY [facility] Physical Exam - Constitutional Appears: Non-toxic, No Acute Distress - Eye Exam Eye Exam: EOMI, PERRL - ENT Exam ENT Exam: Mucous Membranes Moist - Respiratory Exam Respiratory Exam: Clear to Auscultation Bilateral. absent: Rales, Rhonchi, Wheezes - Cardiovascular Exam Cardiovascular Exam: RRR, +S1, +S2 - GI/Abdominal Exam GI & Abdominal Exam: Normal Bowel Sounds, Soft, Tenderness (epigastric, LUQ). absent: Distended, Firm, Guarding, Organomegaly, Rigid - Extremities Exam Extremities exam: Positive for: normal inspection. Negative for: pedal edema - Neurological Exam Neurological exam: Alert, Oriented x3 - Psychiatric Exam Psychiatric exam: Normal Affect, Normal Mood - Skin Skin Exam: Dry, Warm Results - Vital Signs Recent Vital Signs: Last Vital Signs Temp 98.5 F 04/06/18 05:27 Pulse 75 04/06/18 05:28 Resp 18 04/06/18 05:27 BP 142/80 04/06/18 05:27 Pulse Ox 96 04/06/18 05:27 - Labs Result Diagrams: 04/06/18 06:10 04/06/18 06:10 Labs: Laboratory Results - last 24 hr 04/06/18 04/06/18 06:10 06:10 WBC 6.5 D RBC 4.19 Hgb 13.6 Hct 39.3 MCV 93.8 MCH 32.5 MCHC 34.6 RDW 14.7 H Plt Count 209 MPV 10.3 Gran % 54.5 Lymph % (Auto) 35.1 H Esmeralda % (Auto) 8.5 H Eos % (Auto) 1.4 L Baso % (Auto) 0.5 Gran # 3.52 Lymph # (Auto) 2.3 Esmeralda # (Auto) 0.6 Eos # (Auto) 0.1 Baso # (Auto) 0.03 Sodium 139 Potassium 3.7 Chloride 105 Carbon Dioxide 28 Anion Gap 11 BUN 6 L Creatinine 0.6 L Est GFR ( Amer) > 60 Est GFR (Non-Af Amer) > 60 Random Glucose 99 Calcium 9.2 Total Bilirubin 1.2 AST 17 ALT 28 Alkaline Phosphatase 59 Total Protein 6.1 Albumin 3.6 Globulin 2.5 Albumin/Globulin Ratio 1.4 Amylase 41 Lipase 71 Assessment & Plan - Assessment and Plan (Free Text) Assessment: Patient is a 62yo female with PMHx significant for HTN who presented to the ED with abdominal pain, nausea, dizziness and syncope/near-syncope -Abdominal/flank pain -Syncope Plan: -Patient has had some outpatient work up with U/S previously (negative per patient) and currently refusing repeat U/S to R/O cholelithiasis -CT reviewed - no significant findings noted -Unclear etiology of syncope - cardiogenic vs neurogenic - work up ongoing; on telemetry presently -Would benefit from endoscopic evaluation given persistence of pain, however will request cardiac clearance prior to this given reported syncope -If given, will make NPO past midnight and plan for EGD tomorrow -Protonix 40mg PO QAMAC - Date & Time Date: 04/06/18 Time: 08:30 <Jayne Heath V - Last Filed: 04/06/18 23:04> Meds - Medications Medications: Current Medications Amlodipine Besylate (Norvasc) 5 mg PO DAILY [facility] Last Admin: 04/06/18 09:36 Dose: 5 mg Dextrose/Sodium Chloride (Dextrose 5%/0.45% Ns 1000 Ml) 1,000 mls @ 75 mls/hr IV .[id number] [facility] Ondansetron HCl (Zofran Inj) 4 mg IVP Q6H PRN PRN Reason: Nausea/Vomiting Pantoprazole Sodium (Protonix Inj) 40 mg IVP DAILY [facility] Last Admin: 04/06/18 09:36 Dose: 40 mg Results - Vital Signs Recent Vital Signs: Last Vital Signs Temp 98.2 F 04/06/18 17:52 Pulse 76 04/06/18 17:52 Resp 20 04/06/18 17:52 BP 133/81 04/06/18 17:52 Pulse Ox 95 04/06/18 10:57 - Labs Result Diagrams: 04/06/18 06:10 04/06/18 06:10 Labs: Laboratory Results - last 24 hr 04/06/18 04/06/18 06:10 06:10 WBC 6.5 D RBC 4.19 Hgb 13.6 Hct 39.3 MCV 93.8 MCH 32.5 MCHC 34.6 RDW 14.7 H Plt Count 209 MPV 10.3 Gran % 54.5 Lymph % (Auto) 35.1 H Esmeralda % (Auto) 8.5 H Eos % (Auto) 1.4 L Baso % (Auto) 0.5 Gran # 3.52 Lymph # (Auto) 2.3 Esmeralda # (Auto) 0.6 Eos # (Auto) 0.1 Baso # (Auto) 0.03 Sodium 139 Potassium 3.7 Chloride 105 Carbon Dioxide 28 Anion Gap 11 BUN 6 L Creatinine 0.6 L Est GFR ( Amer) > 60 Est GFR (Non-Af Amer) > 60 Random Glucose 99 Calcium 9.2 Total Bilirubin 1.2 AST 17 ALT 28 Alkaline Phosphatase 59 Total Protein 6.1 Albumin 3.6 Globulin 2.5 Albumin/Globulin Ratio 1.4 Amylase 41 Lipase 71 Attending/Attestation - Attestation I have personally seen and examined this patient.: Yes I have fully participated in the care of the patient.: Yes I have reviewed all pertinent clinical information: Yes Notes (Text): zuly 04/06/18 23:04
--- NOTE | 2018-04-06 09:05 | CT ---
PROCEDURE: CT Abdomen and Pelvis with contrast HISTORY: epigastric/RLQ pain, nausea COMPARISON: None. TECHNIQUE: Following the intravenous administration of iodinated contrast material, a CT examination of the abdomen and pelvis performed from the domes of the diaphragms to the symphysis pubis with reformatted datasets provided not only axial but also sagittal and coronal planes. Oral contrast was not administered as per referring physician request. Contrast dose: Omnipaque 350, 96 cc Radiation dose: Total exam DLP = 266.37 mGy-cm. This CT exam was performed using one or more of the following dose reduction techniques: Automated exposure control, adjustment of the mA and/or kV according to patient size, and/or use of iterative reconstruction technique. FINDINGS: LOWER THORAX: No pertinent findings. LIVER: There are a few tiny lucencies too small to characterize scattered in the upper liver. Further, diminished attenuation throughout the liver suggests fatty infiltration diffusely. GALLBLADDER AND BILE DUCTS: Unremarkable. PANCREAS: Unremarkable. No gross lesion or ductal dilatation. SPLEEN: Unremarkable. ADRENALS: Unremarkable. No mass. KIDNEYS AND URETERS: Unremarkable. No hydronephrosis. No solid mass. VASCULATURE: Unremarkable. No aortic aneurysm. BOWEL: The stomach is collapsed. No bowel obstruction appreciated. Lack oral contrast limits evaluation of the small and large bowel loops which appear nonfocal as imaged. Mild re- retained fecal material seen scattered throughout large-bowel with the left hemicolon largely collapsed. APPENDIX: Normal appendix. PERITONEUM: Unremarkable. No free fluid. No free air. LYMPH NODES: Unremarkable. No enlarged lymph nodes. BLADDER: Unremarkable. REPRODUCTIVE: Unremarkable. BONES: No acute fracture. OTHER FINDINGS: None. IMPRESSION: 1. Hepatic steatosis. Few tiny lucencies are scattered in the liver which are too small to characterize. 2. No bowel obstruction, measure edema, ascites or free intrarenal gas. Normal appendix. Concordant preliminary report from [facility], 04/05/2018.
--- NOTE | 2018-04-06 10:21 | CON ---
DATE: 04/06/2018 CONSULT REQUESTED BY: Jeramy Arango MD. REASON FOR CONSULTATION: Polycythemia, abdominal pain. HISTORY OF PRESENT ILLNESS: Ms. Christopher is a 62-year-old female admitted to the hospital with abdominal pain for about three days. She presented to the office three days ago with headaches and abdominal pain. She was admitted with a similar complaint a year ago and she was found to have elevated hemoglobin and hematocrit. She was evaluated for polycythemia. 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 Denies any fever, chills or rigor. No vomiting. Headache has resolved. She underwent therapeutic phlebotomy of 450 mL of blood in the office three days ago Because of symptoms related to polycythemia, her hematocrit was elevated up to 54, Hb 18.0. PAST MEDICAL HISTORY: Hypertension, gastritis. PAST SURGICAL HISTORY: . ALLERGIES: LEVOFLOXACIN. PERSONAL HISTORY: Heavy smoker, smokes more than 10 cigarettes a day. FAMILY HISTORY: Noncontributory. HOME MEDICATIONS: Pepcid 40 mg daily. REVIEW OF SYSTEMS: As per HPI. Rest of 12-point review of systems is reviewed and negative. PHYSICAL EXAMINATION GENERAL: Comfortable in bed, in no acute distress. VITAL SIGNS: Temperature 98.7, heart rate 82 per minute, respiratory rate 18 per minute, blood pressure 144/94, pulse ox is 94% on room air. HEENT: No pallor. NECK: No lymphadenopathy. CHEST: Air entry present and equal bilaterally. No added sounds. CARDIOVASCULAR: S1 and S2 normal. No murmur. No gallop. ABDOMEN: Soft, nontender. No hepatosplenomegaly. EXTREMITIES: No edema. LABORATORY DATA: White count 8.6, hemoglobin 15.2, hematocrit 40.7, platelets 206. BUN 6, creatinine 0.5, glucose 98. CAT scan of the abdomen and pelvis done, it did not show any marked lesions, unremarkable CAT scans. ASSESSMENT: 1. Secondary polycythemia, II smoking., RADHA-2 negative. 2. Abdominal pain. 3. Acute on chronic gastritis. PLAN: Hemoglobin and hematocrit is stable, recent therapeutic phlebotomy. I would recommend endoscopy. Dr. Heath has been consulted. She was advised an outpatient also to consult GI, but she never did. Recent appointment was made from outpatient service with Dr. Heath. CAT scan of abdomen and pelvis unremarkable. Renal functions are normal. Hypertension, blood pressure controlled with current medications. Thank you, Dr. Arango for allowing us to participate in Ms. Christopher's care. Rachelle Werner MD [facility]
[2018-04-06] MEDS: Dextrose 5%/0.45% NS 1,000 ML IV SCH (11:15)
--- NOTE | 2018-04-06 13:14 | CT ---
PROCEDURE: CT HEAD WITHOUT CONTRAST. HISTORY: syncope COMPARISON: None available. TECHNIQUE: Axial computed tomography images were obtained through the head/brain without intravenous contrast. Radiation dose: Total exam DLP = 696.00 mGy-cm. This CT exam was performed using one or more of the following dose reduction techniques: Automated exposure control, adjustment of the mA and/or kV according to patient size, and/or use of iterative reconstruction technique. FINDINGS: HEMORRHAGE: No intracranial hemorrhage. BRAIN: Normal pike-white matter differentiation and density are appreciated throughout the cerebrum and cerebellum with the brainstem appearing unremarkable as well. There is no mass effect. There is no suspicious extra-axial fluid collection and the midline brain anatomy appears diffusely unremarkable. VENTRICLES: Unremarkable. No hydrocephalus. CALVARIUM: Unremarkable. PARANASAL SINUSES: Minimal bilateral anterior and middle sphenoid sinusitis. MASTOID AIR CELLS: Unremarkable as visualized. No inflammatory changes. OTHER FINDINGS: None. IMPRESSION: Unremarkable noncontrast head CT. Should symptoms persist or worsen, consider follow-up CT or MRI.
--- NOTE | 2018-04-06 14:54 | US ---
PROCEDURE: Bilateral carotid artery duplex ultrasound HISTORY: Carotid stenosis syncope PHYSICIAN(S): Ronaldo Ortega MD. TECHNIQUE: Duplex sonography and color-flow Doppler were used to evaluate the carotid bifurcations and limited segments of the vertebral arteries bilaterally. FINDINGS: There is mild smooth heterogeneous plaque noted at the carotid bifurcations bilaterally. The peak systolic velocity in the proximal right internal carotid artery is 79 cm/sec. This corresponds to a 20 to 39% proximal right ICA stenosis. Normal systolic velocities are noted in the proximal right external carotid artery. There is antegrade flow in the right vertebral artery. The peak systolic velocity in the proximal left internal carotid artery is 85 cm/sec. This corresponds to a 20 to 39% proximal left ICA stenosis. Normal systolic velocities are noted in the proximal left external carotid artery. There is antegrade flow in the left vertebral artery. IMPRESSION: 1. Bilateral 20-39% proximal ICA stenoses. 2. Antegrade flow in both vertebral arteries.
--- NOTE | 2018-04-06 16:35 | PN ---
DATE: 04/06/2018 SUBJECTIVE: The patient is 62 years old, seen and examined, lying in bed, seems to be comfortable, complained of epigastric discomfort, denies any nausea or vomiting, was seen by GI team and scheduled to have endoscopy tomorrow. No complaint of chest pain, no dizziness. PHYSICAL EXAMINATION VITAL SIGNS: The patient is afebrile, pulse 75, respirations 18, and blood pressure 142/80. LUNGS: Bilateral good airflow. No rhonchi or crackle. HEART: S1 and S2 audible. ABDOMEN: Soft and nontender. No rebound. No guarding. NEUROLOGIC: The patient is awake, alert, oriented, communicative. LABORATORY DATA: WBC 6.5, hemoglobin 13.6, hematocrit 39.3, platelets of 209. Chemistry: Sodium 139, potassium 3.7, chloride 105, CO2 of 28, BUN 6, creatinine 0.6, blood sugar of 99. LFTs are within normal limits. CT scan of the abdomen and pelvis shows hepatic steatosis, a few tiny lesions seen as scattered in the liver which are too small to characterize, no bowel obstruction. ASSESSMENT: 1. Abdominal pain, etiology is still unclear. 2. Status post syncope. PLAN: We will discontinue telemetry and continue IV fluid. Currently, the patient is on Protonix. We will order for carotid Doppler and CT of the brain. Scheduled for endoscopy in the a.m. According to that, we will make disposition plan. Jeramy Arango MD
[2018-04-07] MEDS: Dextrose 5%/0.45% NS 1,000 ML IV SCH ×2 (00:57→13:35)
--- NOTE | 2018-04-07 08:29 | CARD ---
APPROVED REPORT EKG Measurement Heart [id number] [place] 146P [id number] <Conclusion> Coronary sinus rhythm LVH by voltage
[2018-04-07 15:15] VITALS: O2SAT 98
[2018-04-07] MEDS ORDERED: Sodium Chloride 0.9% 1,000 ML IV SCH (15:30)
[2018-04-07] MEDS ORDERED: Propofol 10 mg/ml Inj (20 ML) ONE (15:35)
[2018-04-07 18:19] VITALS: BP 144/83; PULSE 63; RESP 20; TEMP 98
--- NOTE | 2018-04-08 08:09 | DS ---
HOSPITAL COURSE: Patient is 62 years old, seen and examined, doing well. No more abdominal discomfort. No nausea, vomiting. No diarrhea. N.p.o. for endoscopy later on today. PHYSICAL EXAMINATION: VITAL SIGNS: Patient is afebrile. Pulse 75, respirations 19, blood pressure 144/77. LUNGS: Bilateral good airflow. No rhonchi or crackle. HEART: S1 and S2 audible. ABDOMEN: Soft and nontender. No rebound. No guarding. NEUROLOGIC: The patient is awake, alert, oriented, communicative, ambulatory. ASSESSMENT: Epigastric pain, status post syncope. CT scan of the head is unremarkable. Bilateral carotid Doppler is unremarkable. 1. Abdominal pain, rule out disease. 2. Hypertension. 3. Status post syncope because of pain and dehydration. PLAN: Patient is going for endoscopy. After that, she will be discharged. She will be maintained on her usual medications, that is amlodipine and we will discharge her on Protonix 40 daily. Jeramy Arango MD
== END 2018-04-07 20:59 | disposition home or self-care (01) ==
LOC: ED 16:43 → ERH 20:31 → 2RNO 23:52
PROVIDERS: ADMIT Internal Medicine; ATTEND Internal Medicine
DX: K21.9 Gastro-esophageal reflux disease without esophagitis (principal); K29.00 Acute gastritis without bleeding; K29.50 Unspecified chronic gastritis without bleeding; K29.80 Duodenitis without bleeding; R55 Syncope and collapse; E86.0 Dehydration; F17.210 Nicotine dependence, cigarettes, uncomplicated; D75.1 Secondary polycythemia; I10 Essential (primary) hypertension; E78.00 Pure hypercholesterolemia, unspecified; K44.9 Diaphragmatic hernia without obstruction or gangrene
CPT/HCPCS: 36415; 43239; 70450; 71045; 74177; 80053; 81003; 82150; 82550; 83690; 84484; 85025; 85610; 85730; 86850; 86900; 87086; 88305; 88342; 93005; 93880; 96374; 96375; 96376; 99285; C9113; G0378; J2001; J2405; J2704; J7040; J7042; Q9967

== ENCOUNTER 2018-06-16 09:35 | Day surgery (SDC) | payer BC ==
[2018-06-16] MEDS ORDERED: Midazolam 2 MG/2 ML VIAL ONE (12:30)
[2018-06-16] MEDS ORDERED: Propofol 10 mg/ml Inj (20 ML) ONE ×2 (12:30→12:45)
[2018-06-16] MEDS ORDERED: Sodium Chloride 0.9% 1,000 ML IV SCH (13:15)
[2018-06-16 13:59] VITALS: BP 143/72; PULSE 72; RESP 18; TEMP 98.4; O2SAT 98
== END 2018-06-16 14:27 | disposition home or self-care (01) ==
LOC: ENDO 09:35
PROVIDERS: ATTEND Internal Medicine Gastroenterology
DX: Z12.11 Encounter for screening for malignant neoplasm of colon (principal); D12.0 Benign neoplasm of cecum; D12.4 Benign neoplasm of descending colon; D12.5 Benign neoplasm of sigmoid colon; K57.30 Diverticulosis of large intestine without perforation or abscess without bleeding; K64.8 Other hemorrhoids
CPT/HCPCS: 45380; 45385; 88305; J2250; J2704; J3010; J7030; J7040